=== PATIENT | male | born 1950 | race Caucasian/White ===

== ENCOUNTER 2018-03-28 13:09 | Emergency (ER) | payer MEDICARE, SELFPAY ==
[2018-03-28 13:10] VITALS: BP 201/88; PULSE 78; RESP 22; TEMP 36.7; O2SAT 100
[2018-03-28 13:15] VITALS: BP 201/88; PULSE 71; RESP 18; TEMP 36.7; O2SAT 97
--- NOTE | 2018-03-28 13:16 | ED_ITS ---
HPI - Abdominal Pain <FABRICIO Arreola - Last Filed: 03/28/18 22:14> General Chief Complaint: Abdominal Pain Stated Complaint: abdominal pain from a work injury Time Seen by Provider: 03/28/18 13:15 History of Present Illness HPI narrative: 68-year-old male with history of hypertension here for complaint of lower abdominal pain over the last 4-5 days. He states that he was at work when the pain started. He denies any direct trauma to the abdomen. He states he has increased pain with movement to the lower abdomen. He denies any urinary symptoms. No fevers no chills. No flank pain. Last bowel movement was yesterday was unremarkable. No nausea or vomiting. MD complaint: abdominal pain Related Data Home Medications Medication Instructions Recorded Confirmed naproxen sodium 220 mg capsule 220 mg PO BID PRN 03/28/18 03/28/18 Previous Rx's Medication Instructions Recorded metoprolol tartrate 50 mg PO BID #60 tab 03/29/18 Allergies Allergy/AdvReac Type Severity Reaction Status Date / Time INGREDIENT: NKDA - NO KNOWN Allergy Unknown Uncoded 12/14/17 13:11 DRUG ALLERGIES Review of Systems <FABRICIO Arreola - Last Filed: 03/28/18 22:14> Constitutional Denies chills, Denies fever(s), Denies lethargy and Denies weakness Eyes Denies change in vision, Denies eye discharge, Denies irritation and Denies loss of vision ENT Ears, Nose, Mouth, and Throat: Denies change in voice, Denies neck pain and Denies sore throat Cardiovascular Denies chest pain, Denies irregular heart rhythm, Denies lightheadedness, Denies palpitations, Denies dyspnea, Denies dyspnea on exertion and Denies orthopnea Respiratory Denies cough, Denies dyspnea, Denies dyspnea on exertion and Denies wheezing Gastrointestinal Gastrointestinal: Reports abdominal pain Genitourinary Denies hematuria, Denies flank pain, Denies urinary incontinence and Denies urinary urgency Musculoskeletal Denies neck pain Integumentary/Breasts Denies pruritus, Denies erythema, Denies rash and Denies wounds Neurologic Denies confusion, Denies loss of vision and Denies weakness Psychiatric Denies anxiety, Denies confusion, Denies depression, Denies homicidal ideation and Denies suicidal ideation Endocrine Denies palpitations Hematologic/Lymphatic Denies easy bruising Allergic/Immunologic Denies wheezing Exam <FABRICIO Arreola - Last Filed: 03/28/18 22:14> Initial Vital Signs Initial Vital Signs: Vital Signs Temperature 98.0 F 03/28/18 13:10 Pulse Rate 78 03/28/18 13:10 Respiratory Rate 22 03/28/18 13:10 Blood Pressure 201/88 H 03/28/18 13:10 Pulse Oximetry 100 03/28/18 13:10 Const General: cooperative and well developed Nutritional Appearance: well nourished Orientation: alert, awake, oriented x3 and not confused [facility] Mouth: oral mucosae normal and moist mucous membranes Eyes Conjunctivae: conjunctivae normal Sclera: sclerae normal Pupils: PERRL EOM: EOM intact bilaterally Resp Effort & Inspection: normal respiratory effort, able to speak in complete sentences, no respiratory distress and no use of accessory muscles Auscultation: clear to auscultation bilaterally, no rales, no rhonchi and no wheezes Cardio Rate: regular rate Rhythm: regular rhythm Heart Sounds: no click, no gallops, no murmurs and no rubs Pulses: normal peripheral pulses GI Palpation: firm, No hernia, mass, pulsatile mass, No splenomegaly and tender General: No CVA tenderness Skin General: no rashes or lesions noted, No jaundice and No petechiae Neuro General: alert, oriented x3, gait normal and no focal motor deficits Speech: speech normal Extrem General: full ROM, no clubbing, cyanosis or edema, no pedal edema and no calf tenderness <Chico Fiore DO - Last Filed: 03/29/18 08:32> Initial Vital Signs Initial Vital Signs: Vital Signs Temperature 98.0 F 03/28/18 13:10 Pulse Rate 78 03/28/18 13:10 Respiratory Rate 22 03/28/18 13:10 Blood Pressure 201/88 H 03/28/18 13:10 Pulse Oximetry 100 03/28/18 13:10 Course <FABRICIO Arreola - Last Filed: 03/28/18 22:14> Orders Ordered: ED Orders 03/28/18 13:19 Complete Blood Count AUTO DIFF Stat Comprehensive Metabolic Panel Stat Lipase Stat Type and Screen Stat 03/28/18 13:42 US retroperitoneal limited Stat Vital Signs - 8 hr 03/28/18 14:44 Pulse Rate 95 H Respiratory Rate 22 Blood Pressure [Left Arm] 192/86 H Pulse Oximetry 100 <Chico Fiore DO - Last Filed: 03/29/18 08:32> Orders Ordered: ED Orders 03/28/18 13:19 Complete Blood Count AUTO DIFF Stat Comprehensive Metabolic Panel Stat Lipase Stat Type and Screen Stat 03/28/18 13:42 US retroperitoneal limited Stat Vital Signs - 8 hr 03/28/18 14:44 Pulse Rate 95 H Respiratory Rate 22 Blood Pressure [Left Arm] 192/86 H Pulse Oximetry 100 MDM - Abdominal Pain <FABRICIO Arreola - Last Filed: 03/28/18 22:14> Lab Data Result diagrams: 03/28/18 13:19 03/28/18 13:19 Lab Results 03/28/18 03/28/18 03/28/18 Range/Units 13:19 13:19 13:19 WBC 8.4 (4.5-11.0) X10^3/uL RBC 3.87 L (4.5-5.9) X10^6/uL Hgb 12.7 L (13.5-17.5) g/dL Hct 37.3 L (41-53) % MCV 96.3 (80-100) fL MCH 32.8 (26-34) PG MCHC 34.0 (30-36) % RDW 13.3 (11.6-14.8) % Plt Count 325 (150-400) X10^3/uL Neut % (Auto) 75.4 H (50-75) % Lymph % (Auto) 17.4 L (25-40) % Russell % (Auto) 6.5 (3-14) % Eos % (Auto) 0.1 L (2-4) % Baso % (Auto) 0.6 (0-2) % Neut # (Auto) 6300 H (4927-9431) /uL Sodium 138 (137-145) mmol/L Potassium 4.2 (3.4-5.1) mmol/L Chloride 96 L (98-107) mmol/L Carbon Dioxide 30 (22-32) mmol/L BUN 13 (9-20) mg/dL Creatinine 0.80 (0.66-1.25) mg/dL Estimated GFR > 60.0 (>60) mL/min BUN/Creatinine Ratio 16.3 (6-22) Glucose 107 (80-110) mg/dL Calcium 9.2 (8.4-10.2) mg/dL Total Bilirubin 1.0 (0.2-1.3) mg/dL AST 24 (17-59) IU/L ALT 16 L (21-72) IU/L Alkaline Phosphatase 128 H (38-126) U/L Total Protein 8.5 H (6.3-8.2) g/dL Albumin 4.4 (3.5-5.0) g/dL Globulin 4.1 (1.7-4.1) g/dL Albumin/Globulin Ratio 1.1 (1.0-2.8) Lipase 42 (23-300) U/L Blood Type A Negative Antibody Screen Negative Imaging Data US - abdomen: Radiologist's impression: Patient: Ryley Mora MR#: [id number] : 1950 Acct:[id number] Age/Sex: 68 / M Date of Service: 03/28/18 Loc: ED Accession Number: [id number] Procedure: US retroperitoneal limited Ordering Provider: Antonio Green PROCEDURE: US RETRO PERITONEAL LIMITED INDICATIONS: Pain into a midline lower abdomen with palpable pulsatile ma TECHNIQUE: Real time scanning was performed of the aorta and iliac arteries, with image documentation. COMPARISON: None. FINDINGS: Aorta: Proximal aortic diameter measures 2.5 cm. Mid-aorta measures 5.4 cm. Distal aortic diameter is 5.2 cm. Iliac arteries: Right common iliac artery measures 3.2 cm. Left common iliac artery measures 1.7 cm. IMPRESSION: 1. 5.4 cm abdominal aortic aneurysm. 2. 3.2 cm right common iliac artery aneurysm. Dictated by: Davina Reyes MD, PhD on 03/28/2018 at 14:37 Approved by: Davina Reyes MD, PhD on 03/28/2018 at 14:[address] [facility] Narrative Medical decision making narrative: Ultrasound shows 5.5 cm abdominal aortic aneurysm. Believe that this is where his pain is coming from. No known prior history of having any aneurysm. He has history of hypertension and is a daily smoker. He is currently not taking any medications. Discussed case with patient and was trying to transfer patient to a vascular surgeon at [place] however patient decided he did not want to stay and wanted to leave. He was strongly encouraged not to leave due to the risk of having a ruptured aneurysm. Also had Dr. Fiore talked to patient to see if he could convince patient to stay to treat and remitting patient refused and decided he was going to leave he stated that his mind is made of. He acknowledges the risk of risk of sudden . He was informed of risks and benefits of staying patient states he was informed and is still wanting to leave. He was informed to follow up with primary care provider or return to emergency room at soonest opportunity <Chico Fiore, DO - Last Filed: 03/29/18 08:32> Lab Data Lab Results 03/28/18 03/28/18 03/28/18 Range/Units 13:19 13:19 13:19 WBC 8.4 (4.5-11.0) X10^3/uL RBC 3.87 L (4.5-5.9) X10^6/uL Hgb 12.7 L (13.5-17.5) g/dL Hct 37.3 L (41-53) % MCV 96.3 (80-100) fL MCH 32.8 (26-34) PG MCHC 34.0 (30-36) % RDW 13.3 (11.6-14.8) % Plt Count 325 (150-400) X10^3/uL Neut % (Auto) 75.4 H (50-75) % Lymph % (Auto) 17.4 L (25-40) % Russell % (Auto) 6.5 (3-14) % Eos % (Auto) 0.1 L (2-4) % Baso % (Auto) 0.6 (0-2) % Neut # (Auto) 6300 H (4789-3862) /uL Sodium 138 (137-145) mmol/L Potassium 4.2 (3.4-5.1) mmol/L Chloride 96 L (98-107) mmol/L Carbon Dioxide 30 (22-32) mmol/L BUN 13 (9-20) mg/dL Creatinine 0.80 (0.66-1.25) mg/dL Estimated GFR > 60.0 (>60) mL/min BUN/Creatinine Ratio 16.3 (6-22) Glucose 107 (80-110) mg/dL Calcium 9.2 (8.4-10.2) mg/dL Total Bilirubin 1.0 (0.2-1.3) mg/dL AST 24 (17-59) IU/L ALT 16 L (21-72) IU/L Alkaline Phosphatase 128 H (38-126) U/L Total Protein 8.5 H (6.3-8.2) g/dL Albumin 4.4 (3.5-5.0) g/dL Globulin 4.1 (1.7-4.1) g/dL Albumin/Globulin Ratio 1.1 (1.0-2.8) Lipase 42 (23-300) U/L Blood Type A Negative Antibody Screen Negative Discharge Plan Departure Patient Disposition: Left Against Medical Advice Clinical Impression: Abdominal aortic aneurysm (AAA) Discharge Date/Time: 03/28/18 14:55 Interventions: ED Discharge Assessment Last Done: 03/28/18 15:07 Instructions: Aortic Aneurysm Activity Restrictions/Additional Instructions: *You have been diagnosed with [ acute abdominal aortic aneurysm ] *What to do: *Take medications as directed *Follow up with Vascular Surgery at [facility]. [phone]. Call for appointment, let them know you were seen in the [facility] Emergency Department and we discussed transfer with their vascular team. They can call us for records. *Return to ER immediately if you want any help in speeding up the process. Additionally if you have increasing pain, shortness of breath, passing out, or other bothersome symptoms please return immediately Prescriptions: New metoprolol tartrate 50 mg tablet 50 mg PO BID Qty: 60 RF: 0 No Action naproxen sodium [Aleve] 220 mg capsule 220 mg PO BID PRN (Reason: Pain, Mild) RF: 0 Referrals: Ryley Weaver MD [Primary Care Provider] - <Chico Fiore DO - Last Filed: 03/29/18 08:32> Cosign ED Attending Shadyature Attestation: I was immediately available in the department for consultation. Documentation has been reviewed. I agree with assessment and plan.
[2018-03-28 13:34] VITALS: BP 160/87; PULSE 74; RESP 16; O2SAT 100
--- NOTE | 2018-03-28 13:42 | DI.US.S_ITS ---
PROCEDURE: US RETRO PERITONEAL LIMITED INDICATIONS: Pain into a midline lower abdomen with palpable pulsatile ma TECHNIQUE: Real time scanning was performed of the aorta and iliac arteries, with image documentation. COMPARISON: None. FINDINGS: Aorta: Proximal aortic diameter measures 2.5 cm. Mid-aorta measures 5.4 cm. Distal aortic diameter is 5.2 cm. Iliac arteries: Right common iliac artery measures 3.2 cm. Left common iliac artery measures 1.7 cm. IMPRESSION: 1. 5.4 cm abdominal aortic aneurysm. 2. 3.2 cm right common iliac artery aneurysm. Dictated by: Davina Reyes MD, PhD on 03/28/2018 at 14:37 Approved by: Davina Reyes MD, PhD on 03/28/2018 at 14:38
[2018-03-28 13:53] LABS: Add Manual Diff / Slide Review NO; Basophils Percent Auto 0.6 % (0-2); Eosinophils Percent Auto 0.1 % (2-4); Hematocrit 37.3 % (41-53); Hemoglobin 12.7 g/dL (13.5-17.5); Lymphocytes Percent Auto 17.4 % (25-40); Mean Corpuscular Hemoglobin 32.8 PG (26-34); Mean Corpuscular Volume 96.3 fL (80-100); Monocytes Percent Auto 6.5 % (3-14); Neutrophils Absolute Auto 6300 /uL (3000-5900); Neutrophils Percent Auto 75.4 % (50-75); Platelet Count 325 X10^3/uL (150-400); Red Blood Cell Count 3.87 X10^6/uL (4.5-5.9); Red Cell Distribution Width 13.3 % (11.6-14.8); White Blood Cell Count 8.4 X10^3/uL (4.5-11.0)
[2018-03-28 13:58] LABS: Alanine Aminotransferase 16 IU/L (21-72); Albumin 4.4 g/dL (3.5-5.0); Albumin Globulin Ratio 1.1 (1.0-2.8); Alkaline Phosphatase 128 U/L (38-126); Aspartate Aminotransferase 24 IU/L (17-59); BUN Creatinine Ratio 16.3 (6-22); Blood Urea Nitrogen 13 mg/dL (9-20); Calcium 9.2 mg/dL (8.4-10.2); Carbon Dioxide 30 mmol/L (22-32); Chloride 96 mmol/L (98-107); Estimated Glomerular Filt Rate > 60.0 mL/min (>60); Globulin 4.1 g/dL (1.7-4.1); Glucose 107 mg/dL (80-110); HEMOLYSIS < 15 (0-50); Lipase 42 U/L (23-300); Potassium 4.2 mmol/L (3.4-5.1); Sodium 138 mmol/L (137-145); Total Protein 8.5 g/dL (6.3-8.2)
[2018-03-28 14:00] VITALS: BP 177/87; PULSE 99; RESP 21; O2SAT 98
[2018-03-28 14:44] VITALS: BP 192/86; PULSE 95; RESP 22; O2SAT 100
--- NOTE | 2018-03-28 15:00 | PC.NURSE ---
Pt's primary RN asked for me to speak with patient as he was wishing to leave against medical advice and has a possible life threatening AAA. Pt has spoken with Aminta RN, Raysa RN, Rosalie RN, Norma PETER and Dr Fiore. I entered patients room and introduced myself. Pt stated others had already spoken with him and he felt we were stalling his discharge. I expressed my staff are concerned about him and felt he was risking his life by leaving and I wanted to see if there was anything we could do to get him to stay. Pt declined and stated firmly he wanted to go home and was not willing to discuss it further. I agreed to get the necessary paperwork. I discussed the discharge paperwork in length and gave the patient the ED business card and told him to call us if he had any questions or changed his mind. I also informed the patient we would be happy to see him at anytime as he is having a true emergency that needs immediate attention. The patient verbalized understanding and asked to leave.
--- NOTE | 2018-03-29 07:51 | PC.NURSE ---
Pt returned to ED this am w/ questions regarding his stay yesterday. Pt diagnosed w/ hypertension and new AAA. Had been encouraged to stat transfer to [facility] but pt refused and went home AMA. Pt allowed me to check his blood pressure. Left 207/102: Right 190/94. Denies pain at this time. Appears to be a/o x 3 and neurologically intact. Refused offer to sign into ED. Reviewed visit yesterday. Pt states he would like to call for appt at [facility] and has called and left message. I offered to get appt w/ Dr. Weaver (listed PCP) but pt states he sees no reason and has not seen Dr. Weaver in the past and states he is the primary in name only. Discussed risk of / injury from untreated AAA / uncontrolled hypertension which pt verbalized understanding. Continued to refuse to get further care. Dr. Fiore offered to speak to pt.
--- NOTE | 2018-03-29 08:14 | PC.NURSE ---
Dr. Fiore saw at triage. (had seen pt yesterday in conjunction w/ Antonio Green. Please see MD note for further information.
== END 2018-03-28 14:55 | disposition left against medical advice (07) ==
LOC: ED 14:20
PROVIDERS: Emergency Provider Nurse Practitioner Family; Family Provider Family Medicine; PCP Family Medicine
DX: I71.4 Abdominal aortic aneurysm, without rupture (principal)
CPT/HCPCS: 36591; 76775; 80053; 83690; 85025; 86850; 86900; 86901; 93005; 99283; 99285

== ENCOUNTER → 2018-07-20 12:27 | Outpatient (CLI) | payer MEDICARE, SELFPAY ==
[2018-07-20 12:58] LABS: Add Manual Diff / Slide Review NO; Hematocrit 36.7 % (41-53); Hemoglobin 12.3 g/dL (13.5-17.5); Lymphocytes Percent Auto 26.5 % (25-40); Mean Corpuscular HGB Conc 33.5 % (30-36); Mean Corpuscular Hemoglobin 32.2 PG (26-34); Mean Corpuscular Volume 96.2 fL (80-100); Monocytes Percent Auto 8.3 % (3-14); Neutrophils Absolute Auto 4400 /uL (3000-5900); Neutrophils Percent Auto 63.2 % (50-75); Platelet Count 299 X10^3/uL (150-400); Red Blood Cell Count 3.82 X10^6/uL (4.5-5.9)
[2018-07-20 13:16] LABS: Alanine Aminotransferase 18 IU/L (21-72); Albumin 4.3 g/dL (3.5-5.0); Alkaline Phosphatase 114 U/L (38-126); Aspartate Aminotransferase 21 IU/L (17-59); Bilirubin Total 0.7 mg/dL (0.2-1.3); Blood Urea Nitrogen 10 mg/dL (9-20); Calcium 8.9 mg/dL (8.4-10.2); Carbon Dioxide 29 mmol/L (22-32); Chloride 101 mmol/L (98-107); Cholesterol 161 mg/dL (140-199); Estimated Glomerular Filt Rate > 60.0 mL/min (>60); Globulin 4.3 g/dL (1.7-4.1); Glucose 104 mg/dL (80-110); HDL Cholesterol 44 mg/dL (40-60); HEMOLYSIS < 15 (0-50); LDL Cholesterol Calculated 106 mg/dL (<100); Potassium 4.5 mmol/L (3.4-5.1); Sodium 142 mmol/L (137-145); Total Protein 8.6 g/dL (6.3-8.2); Triglycerides 57 mg/dL (35-150)
== END ==
PROVIDERS: PCP Internal Medicine; Visit Provider Internal Medicine
DX: I10 Essential (primary) hypertension (principal); I71.4 Abdominal aortic aneurysm, without rupture
CPT/HCPCS: 36415; 80053; 80061; 85025

== ENCOUNTER → 2022-07-08 09:53 | Outpatient (CLI) | payer OTHER, SELFPAY ==
--- NOTE | 2022-07-08 | DI.US.S_ITS ---
PROCEDURE: US RETRO PERITONEAL LIMITED INDICATIONS: AAA SCREENING; patient underwent graft repair in 2018. TECHNIQUE: Real time scanning was performed of the aorta and iliac arteries, with image documentation. COMPARISON: [facility], , RETRO PERITONEAL LIMITED, 03/28/2018, 14:05. FINDINGS: Limited examination secondary to bowel gas. Aorta: Proximal aortic diameter measures 3 cm. Mid-aorta measures 2.0 cm. Distal aortic diameter is 3.3 cm. Iliac arteries: Right common iliac artery measures 2.4 cm. Left common iliac artery measures 1.9 cm. IMPRESSION: Limited examination demonstrating mild aneurysmal dilatation of the distal abdominal aorta. Dictated by: Caroline Donahue M.D. on 07/08/2022 at 11:42 Approved by: Caroline Donahue M.D. on 07/08/2022 at 11:43
== END ==
PROVIDERS: Family Provider Family Medicine; PCP Internal Medicine; Referring Provider Internal Medicine; Visit Provider Internal Medicine
DX: I71.40 Abdominal aortic aneurysm, without rupture, unspecified (principal)
CPT/HCPCS: 76775

== ENCOUNTER → 2023-12-19 14:08 | Outpatient (CLI) | payer MEDICARE, SELFPAY ==
--- NOTE | 2023-12-19 14:09 | DI.CT.S_ITS ---
PROCEDURE: CT LUNG LOW DOSE SCREENING INDICATIONS: lung screening TECHNIQUE: Noncontrast 2.0-2.5 mm thick sections acquired from the pulmonary apices to the posterior costophrenic angles. 7 mm thick axial MIP, and 5 mm coronal and sagittal reformats were then acquired. For radiation dose reduction, the following was used: automated exposure control, adjustment of mA and/or kV according to patient size. COMPARISON: [facility], CT, CT LOW DOSE LUNG CA SCREENING, 11/02/2022, 11:27. FINDINGS: Image quality: Diagnostic. Lower Neck: No enlarged lymph nodes. Thyroid: No thyroid nodules which require sonographic follow up, per consensus guidelines. Axillae: No enlarged lymph nodes. Chest Wall: Unremarkable. Bones: Unremarkable. Lungs and Pleura: No pneumothorax or pleural effusions. Pulmonary nodules are as follows--all described on series 3: 1. 2 mm right apical pulmonary nodule, image 61 2. A previously described left endobronchial nodule on previous image 187 is not identified. 3. Another endobronchial nodule described on image 190 the previous study is also not identified. No new or increasing pulmonary nodules. Mild emphysematous change, most notably in the posterior lung bases. Heart: Heart size is normal. No pericardial effusion. Moderate coronary artery calcifications. Thoracic Vessels: The aorta and pulmonary arteries demonstrate normal size. Aberrant right subclavian, aneurysmally dilated at its origin, measuring 2.2 cm, as before. Mild aneurysmal dilatation of the ascending aorta, measuring 4.1 cm. Mediastinum and Nathaly: No enlarged lymph nodes. Esophagus: No wall thickening. No hiatal hernia. Upper Abdomen: Visualized upper abdomen solid organs and bowel loops appear normal. IMPRESSION: Emphysematous change. No suspicious pulmonary nodules. Mild aneurysmal dilatation of the ascending aorta. 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 Moderate coronary artery calcifications. No suspicious pulmonary nodules. LUNG-RADS 1; continued annual screening, if eligible. Clinically Significant Non-pulmonary Findings: Coronary artery calcifications, ascending aortic aneurysm, aberrant right subclavian artery with proximal aneurysmal dilatation. Dictated by: Juancarlos Khan M.D. on 12/19/2023 at 20:17 Approved by: Juancarlos Khan M.D. on 12/19/2023 at 20:26
--- NOTE | 2023-12-19 14:10 | DI.US.S_ITS ---
PROCEDURE: US RETRO PERITONEAL LIMITED INDICATIONS: POST AAA GRAFT REPAIR 2018 TECHNIQUE: Real time scanning was performed of the aorta and iliac arteries, with image documentation. COMPARISON: [facility], CT, CT LUNG LOW DOSE SCREENING, 12/19/2023, 14:24. [facility], US, US RETRO PERITONEAL LIMITED, 07/08/2022, 10:03. FINDINGS: Aorta: Interval increase in size of abdominal aorta, previously measuring 3.2 x 3.3 cm in currently measuring 3.3 x 4.0 cm. Iliac arteries: Right common iliac artery measures 2.0 cm. Left common iliac artery measures 2.1 cm. IMPRESSION: Interval increase in size of abdominal aortic aneurysm, which by history is undergone repair in 2018. Comment: Recommend further evaluation using either post treatment protocol CT angiography or MRI. Dictated by: Juancarlos Khan M.D. on 12/19/2023 at 16:03 Approved by: Juancarlos Khan M.D. on 12/19/2023 at 16:07
== END ==
PROVIDERS: Family Provider Family Medicine; PCP Internal Medicine; Referring Provider Internal Medicine; Visit Provider Internal Medicine
DX: R91.1 Solitary pulmonary nodule (principal); Z12.2 Encounter for screening for malignant neoplasm of respiratory organs; Z87.891 Personal history of nicotine dependence; I71.43 Infrarenal abdominal aortic aneurysm, without rupture; I72.8 Aneurysm of other specified arteries; I25.10 Atherosclerotic heart disease of native coronary artery without angina pectoris
CPT/HCPCS: 71271; 76775